=== PATIENT | female | born 1980 | race Caucasian/White ===

== ENCOUNTER 2017-05-15 10:14 | Emergency (ER) | payer SELFPAY ==
[2017-05-15] MEDS ORDERED: LACTATED RINGERS 1,000 ML IVS ONE (10:23)
--- NOTE | 2017-05-15 10:23 | ED.PDOC ---
History of Present Illness - General Chief Complaint: General Stated Complaint: nausea/vomiting /cough Time Seen by Provider: 05/15/17 10:22 Source: patient Exam Limitations: no limitations - History of Present Illness Initial Comments: Ms. Linda Weiss 36 y/o female stated that her illness started this morning when she began having intermittent dull pain on her RLQ followed by nausea vomiting feels like having bowel movement but unable to,no diarrhea,no dysuria .No dizziness Timing/Duration: 4-6 hours Severity: moderate Improving Factors: nothing Worsening Factors: eating Associated Symptoms: cough Allergies/Adverse Reactions: Allergies Hydromorphone [From Dilaudid] Allergy (Verified 11/10/14 02:07) Vomitting Home Medications: Ambulatory Orders Ondansetron [Zofran Odt] 8 mg PO Q8HRS PRN #10 tab 05/15/17 Promethazine HCl 25 mg PO Q6HR PRN #14 tab 05/15/17 Review of Systems - Review of Systems Constitutional: States: no symptoms reported EENTM: States: no symptoms reported Respiratory: States: cough - non productive Cardiology: States: no symptoms reported Gastrointestinal/Abdominal: States: see HPI Genitourinary: States: no symptoms reported Past Medical History (General) - Patient Medical History Hx Seizures: No Hx Stroke: No Hx Asthma: Yes Hx of COPD: No Hx Cardiac Disorders: No Hx Congestive Heart Failure: No Hx Pacemaker: No Hx Hypertension: No Hx Diabetes: No Hx MRSA: No Surgical History: other - hysterectomy - Vaccination History Hx Tetanus, Diphtheria Vaccination: Yes - Social History Hx Tobacco Use: Yes - 1ppd Years Tobacco Use: 20 Hx Alcohol Use: No Hx Substance Use: Yes - marijuana occasional use Hx Physical Abuse: No Hx Emotional Abuse: No - Female History Patient : No Family Medical History - Family History Mother Family History: No Known Living Status: Still Living Hx Family Hypertension: Yes - parents Physical Exam - Physical Exam General Appearance: Alert, No apparent distress Eye Exam: bilateral normal Ears, Nose, Throat: hearing grossly normal, normal ENT inspection Neck: non-tender, full range of motion, supple Respiratory: chest non-tender, lungs clear Cardiovascular/Chest: normal peripheral pulses, regular rate, rhythm, no murmur Peripheral Pulses: radial,right: 1+, radial,left: 1+ Gastrointestinal/Abdominal: normal bowel sounds, soft, no organomegaly, tenderness - RLQ no peritoneal signs Back Exam: normal inspection, no CVA tenderness Extremity: normal range of motion, non-tender, no pedal edema, no calf tenderness Neurologic: no motor/sensory deficits, alert, oriented x 3 Skin Exam: normal color, warm/dry Lymphatic: no adenopathy Progress - Progress Progress: 05/15/17 12:40 Vital Signs - 8 hr 05/15/17 05/15/17 11:50 12:15 Temperature 97.4 F L Pulse Rate [ 48 L 52 L pulse ox] Respiratory 20 16 Rate Blood Pressure 126/67 105/68 [left brachial] O2 Sat by Pulse 99 97 Oximetry Laboratory Tests 05/15/17 05/15/17 05/15/17 10:30 10:30 10:30 WBC 8.9 RBC 4.98 Hgb 15.1 Hct 45.8 MCV 92.0 MCH 30.3 MCHC 33.0 RDW 13.6 Plt Count 238 MPV 8.8 Absolute Neuts (auto) 7.20 H Absolute Lymphs (auto) 1.10 Absolute Monos (auto) 0.40 Absolute Eos (auto) 0.00 Absolute Basos (auto) 0.20 H Neutrophils % 81.1 H Lymphocytes % 11.9 L Monocytes % 4.9 Eosinophils % 0.4 L Basophils % 1.7 Sodium 140 Potassium 3.6 Chloride 107 Carbon Dioxide 25 Anion Gap 11.6 L BUN 8 Creatinine 0.82 BUN/Creatinine Ratio 9.8 L Random Glucose 138 H Serum Osmolality 279.9 Calcium 9.0 Total Bilirubin 0.6 AST 18 ALT 14 Alkaline Phosphatase 50 Serum Total Protein 7.7 Albumin 4.5 Globulin 3.2 Albumin/Globulin Ratio 1.4 Lipase 24 Serum HCG, Qual Negative Urine Color Urine Appearance Urine pH Ur Specific [place] Urine Protein Urine Glucose (UA) Urine Ketones Urine Blood Urine Nitrite Urine Bilirubin Urine Urobilinogen Ur Leukocyte Esterase Urine RBC Urine WBC Ur Epithelial Cells Urine Bacteria Urine Opiates Screen Urine Barbiturates Ur Phencyclidine Scrn U Amphetamin/Meth Scrn U Benzodiazepines Scrn U Cocaine Metab Screen U Cannabinoids Screen 05/15/17 05/15/17 11:41 12:10 WBC RBC Hgb Hct MCV MCH MCHC RDW Plt Count MPV Absolute Neuts (auto) Absolute Lymphs (auto) Absolute Monos (auto) Absolute Eos (auto) Absolute Basos (auto) Neutrophils % Lymphocytes % Monocytes % Eosinophils % Basophils % Sodium Potassium Chloride Carbon Dioxide Anion Gap BUN Creatinine BUN/Creatinine Ratio Random Glucose Serum Osmolality Calcium Total Bilirubin AST ALT Alkaline Phosphatase Serum Total Protein Albumin Globulin Albumin/Globulin Ratio Lipase Serum HCG, Qual Urine Color Yellow Urine Appearance Clear Urine pH 7.0 Ur Specific [place] 1.025 Urine Protein Trace Urine Glucose (UA) Negative Urine Ketones Negative Urine Blood Negative Urine Nitrite Negative Urine Bilirubin Negative Urine Urobilinogen 0.2 Ur Leukocyte Esterase Negative Urine RBC 0 Urine WBC 0 Ur Epithelial Cells 10-20 Urine Bacteria Rare Urine Opiates Screen Negative Urine Barbiturates Negative Ur Phencyclidine Scrn Negative U Amphetamin/Meth Scrn Negative U Benzodiazepines Scrn Positive H U Cocaine Metab Screen Negative U Cannabinoids Screen Positive H - Results/Orders Results/Orders: Laboratory Tests 05/15/17 05/15/17 05/15/17 10:30 10:30 10:30 WBC 8.9 RBC 4.98 Hgb 15.1 Hct 45.8 MCV 92.0 MCH 30.3 MCHC 33.0 RDW 13.6 Plt Count 238 MPV 8.8 Absolute Neuts (auto) 7.20 H Absolute Lymphs (auto) 1.10 Absolute Monos (auto) 0.40 Absolute Eos (auto) 0.00 Absolute Basos (auto) 0.20 H Neutrophils % 81.1 H Lymphocytes % 11.9 L Monocytes % 4.9 Eosinophils % 0.4 L Basophils % 1.7 Sodium 140 Potassium 3.6 Chloride 107 Carbon Dioxide 25 Anion Gap 11.6 L BUN 8 Creatinine 0.82 BUN/Creatinine Ratio 9.8 L Random Glucose 138 H Serum Osmolality 279.9 Calcium 9.0 Total Bilirubin 0.6 AST 18 ALT 14 Alkaline Phosphatase 50 Serum Total Protein 7.7 Albumin 4.5 Globulin 3.2 Albumin/Globulin Ratio 1.4 Lipase 24 Serum HCG, Qual Negative Urine Color Urine Appearance Urine pH Ur Specific [place] Urine Protein Urine Glucose (UA) Urine Ketones Urine Blood Urine Nitrite Urine Bilirubin Urine Urobilinogen Ur Leukocyte Esterase Urine RBC Urine WBC Ur Epithelial Cells Urine Bacteria Urine Opiates Screen Urine Barbiturates Ur Phencyclidine Scrn U Amphetamin/Meth Scrn U Benzodiazepines Scrn U Cocaine Metab Screen U Cannabinoids Screen 05/15/17 05/15/17 11:41 12:10 WBC RBC Hgb Hct MCV MCH MCHC RDW Plt Count MPV Absolute Neuts (auto) Absolute Lymphs (auto) Absolute Monos (auto) Absolute Eos (auto) Absolute Basos (auto) Neutrophils % Lymphocytes % Monocytes % Eosinophils % Basophils % Sodium Potassium Chloride Carbon Dioxide Anion Gap BUN Creatinine BUN/Creatinine Ratio Random Glucose Serum Osmolality Calcium Total Bilirubin AST ALT Alkaline Phosphatase Serum Total Protein Albumin Globulin Albumin/Globulin Ratio Lipase Serum HCG, Qual Urine Color Yellow Urine Appearance Clear Urine pH 7.0 Ur Specific [place] 1.025 Urine Protein Trace Urine Glucose (UA) Negative Urine Ketones Negative Urine Blood Negative Urine Nitrite Negative Urine Bilirubin Negative Urine Urobilinogen 0.2 Ur Leukocyte Esterase Negative Urine RBC 0 Urine WBC 0 Ur Epithelial Cells 10-20 Urine Bacteria Rare Urine Opiates Screen Negative Urine Barbiturates Negative Ur Phencyclidine Scrn Negative U Amphetamin/Meth Scrn Negative U Benzodiazepines Scrn Positive H U Cocaine Metab Screen Negative U Cannabinoids Screen Positive H - EKG/XRAY/CT XRAY: chest - no acute abnormality CT Ordered: Yes - no acute abnormality Departure - Departure Clinical Impression: Nausea and vomiting in adult Time of Disposition: 13:27 Disposition: Discharge to Home or Self Care Condition: Fair Instructions: DI for Vomiting -- Adult Referrals: Ronak Li MD [Primary Care Provider] - 1-2 Weeks Prescriptions: Promethazine HCl 25 mg PO Q6HR PRN #14 tab PRN Reason: Nausea Ondansetron [Zofran Odt] 8 mg PO Q8HRS PRN #10 tab PRN Reason: Nausea/Vomiting Home Medications: Ambulatory Orders Ondansetron [Zofran Odt] 8 mg PO Q8HRS PRN #10 tab 05/15/17 Promethazine HCl 25 mg PO Q6HR PRN #14 tab 05/15/17 Additional Instructions: Return to emergency room as needed
[2017-05-15] MEDS ORDERED: ONDANSETRON INJ 4 MG/2 ML VIAL IV ONE (10:24)
--- NOTE | 2017-05-15 10:48 | RAD ---
Study: Single Frontal View of the Chest. Indication:cough Comparison: None. IMPRESSION: Heart size normal. Lungs clear. No acute osseous abnormality. Electronically signed by: Stephon Castillo MD 05/15/2017 10:47 AM CDT
[2017-05-15] MEDS ORDERED: PROMETHAZINE HCL INJ 25 MG/ML VIAL IM ONE (11:00)
[2017-05-15 12:22] VITALS: TEMP 97.4
--- NOTE | 2017-05-15 12:27 | CT ---
EXAM DESCRIPTION: Abdomen/Pelvis w/Contrast CLINICAL HISTORY: RLQ COMPARISON: November 09, 2014 TECHNIQUE: Postcontrast CT images of the abdomen and pelvis are obtained. This exam was performed according to our departmental dose-optimization program, which includes automated exposure control, adjustment of the mA and/or kV according to patient size and/or use of iterative reconstruction technique . FINDINGS: Lung bases are unremarkable. The liver, spleen, pancreas, adrenal glands, gallbladder, and abdominal vasculature are unremarkable. Kidneys show normal cortical enhancement. No significant nephrolithiasis. No obvious ureteral obstruction. Urinary bladder is contracted and not well visualized. There is presumed surgical absence of uterus. Small amount of probably physiologic free fluid in the pelvic cul-de-sac is seen. There is a low attenuation lesion in the right mid to upper pelvis measuring 4.5 x 2.7 cm corresponding to the location of the ovary seen on previous exam. Hounsfield units measure 55. Left ovary is unremarkable. The appendix is not well identified. Portion of the appendix appears air-filled and extends towards the right pelvic sidewall. No small bowel obstruction is seen. The colon is relatively decompressed. No significant surrounding inflammatory changes are seen. No significant diverticular disease. No pathologic lymphadenopathy is identified. Degenerative changes of the sacroiliac joints are seen. Osseous structures show no aggressive bony lesions. Moderate to severe disc degenerative changes at L5-S1 are seen with broad-based disc bulge at L4-5 noted. IMPRESSION: The appendix is incompletely visualized because of surrounding loops of small bowel and the right ovary. Visualized portion of the appendix shows no convincing evidence of acute appendicitis. Correlate with clinical exam findings. Right ovary is slightly larger than left similar to previous exam. Colon is mostly decompressed and otherwise unremarkable. Small amount of probably physiologic free fluid in the pelvic cul-de-sac. Electronically signed by: Joss Hernández MD 05/15/2017 12:25 PM CDT
[2017-05-15] MEDS ORDERED: SODIUM CHLORIDE 0.9% 500ML 500 ML IVS PRN (13:06)
[2017-05-15] MEDS ORDERED: SODIUM CHLORIDE 0.9% 500ML 500 ML IVS ONE (13:06)
[2017-05-15 13:17] VITALS: O2SAT 98
[2017-05-15 14:22] VITALS: BP 98/59
== END 2017-05-15 14:15 | disposition home or self-care (01) ==
LOC: ER 10:14
DX: R11.2 Nausea with vomiting, unspecified (principal); J45.909 Unspecified asthma, uncomplicated; Z87.891 Personal history of nicotine dependence; Z88.6 Allergy status to analgesic agent
CPT/HCPCS: 36415; 71010; 74177; 80053; 80307; 81001; 83690; 84703; 85025; J2060; J2405; J2550; J7040; J7120

== ENCOUNTER 2018-04-12 14:16 | Emergency (ER) | payer SELFPAY ==
[2018-04-12 14:30] VITALS: BP 111/72; TEMP 98.1
[2018-04-12] MEDS ORDERED: predniSONE 20 MG TAB PO ONE (14:42)
[2018-04-12] MEDS ORDERED: CYCLOBENZAPRINE HCL 5 MG TAB PO ONE (14:42)
--- NOTE | 2018-04-12 15:13 | RAD ---
EXAM DESCRIPTION: Lumbar Spine 3 Views CLINICAL HISTORY: lbp c sciatica COMPARISON: None Available. TECHNIQUE: AP/lateral/coned-down lateral FINDINGS: There is anatomic alignment of the vertebral bodies of the lumbar spine. Frontal view shows intact pedicles and transverse processes. Sacrum appears intact with normal SI joints. Lateral view shows no vertebral compressions. Sclerosis is seen involving the lower half of L5 and upper S1 with marked narrowing of the disc space. Facet sclerotic changes are seen at L5-S1 as well. Normal SI joints. IMPRESSION: Advanced degenerative disc disease at L5-S1. Electronically signed by: Hector Hood MD 04/12/2018 3:11 PM CDT
--- NOTE | 2018-04-12 15:23 | ED.PDOC ---
History of Present Illness - General Chief Complaint: Back Pain or Injury Stated Complaint: BACK PAIN Time Seen by Provider: 04/12/18 14:21 Source: patient Exam Limitations: no limitations - History of Present Illness Initial Comments: the patient is a 37-year-old female presenting to emergency room secondary to low back pain for the last 11 days. 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 She is complaining of mild bilateral sciatica as well. No incontinence. No objective leg weakness. No falls. She reports that the pain started 11 days ago after lifting a case at work. She has been taking an [id number] anti-inflammatory and she did take 1 dose of a muscle relaxer. Physical exam shows no step-off or bruising. No spinous tenderness to palpation. Mild paraspinal muscle spasm adjacent to L4 -S1 bilaterally. No definite palpable muscle spasm at this time. Strength is intact. Sensation is intact. Reflexes are symmetrical 2+ bilaterally in the lower extremities. Timing/Duration: other - 11 days Severity: moderate Improving Factors: movement Worsening Factors: immobilization Associated Symptoms: denies symptoms Allergies/Adverse Reactions: Allergies Hydrocodone Allergy (Verified 04/12/18 14:26) Hydromorphone [From Dilaudid] Allergy (Verified 11/10/14 02:07) Vomitting Home Medications: Ambulatory Orders Ondansetron [Zofran Odt] 8 mg PO Q8HRS PRN #10 tab 05/15/17 Promethazine HCl 25 mg PO Q6HR PRN #14 tab 05/15/17 Cyclobenzaprine HCl [Flexeril] 5 mg PO TID PRN #30 tab 04/12/18 Gabapentin 100 mg PO Q8HR PRN #30 cap 04/12/18 predniSONE [Prednisone] 20 mg PO DAILY #7 tab 04/12/18 Review of Systems - Review of Systems Constitutional: States: no symptoms reported EENTM: States: no symptoms reported Respiratory: States: no symptoms reported Cardiology: States: no symptoms reported Gastrointestinal/Abdominal: States: no symptoms reported Genitourinary: States: no symptoms reported Musculoskeletal: States: back pain Skin: States: no symptoms reported Neurological: States: see HPI Endocrine: States: no symptoms reported All other Systems: No Change from Baseline Past Medical History (General) - Patient Medical History Hx Seizures: No Hx Stroke: No Hx Asthma: Yes Hx of COPD: Yes Hx Cardiac Disorders: No Hx Congestive Heart Failure: No Hx Pacemaker: No Hx Hypertension: No Hx Diabetes: No Hx MRSA: No Surgical History: Hysterectomy, other - Vaccination History Hx Tetanus, Diphtheria Vaccination: Yes - Social History Hx Tobacco Use: Yes - 1ppd Hx Alcohol Use: No Hx Substance Use: Yes - marijuana occasional use Hx Physical Abuse: No Hx Emotional Abuse: No - Female History Patient : No Family Medical History - Family History Mother Family History: No Known Living Status: Still Living Hx Family Hypertension: Yes - parents Physical Exam - Physical Exam General Appearance: Alert, Comfortable, No apparent distress Eye Exam: bilateral normal Ears, Nose, Throat: hearing grossly normal, normal ENT inspection, normal pharynx Neck: full range of motion, supple Respiratory: no respiratory distress, no accessory muscle use Cardiovascular/Chest: normal peripheral pulses, no edema, other - regular rate Peripheral Pulses: dorsalis pedis,right: 2+, dorsalis pedis,left: 2+ Rectal Exam: deferred Back Exam: no vertebral tenderness Extremity: other - see history of present illness Neurologic: hypo dipper II-XII nml as tested, alert, normal mood/affect, oriented x 3 DTR: 2+: Achilles, left, Achilles, right, Patellar, left, Patellar, right Skin Exam: normal color Comments: Vital Signs - 24 hr 04/12/18 14:26 Temperature 98.1 F Pulse Rate [ 79 left brachial] Respiratory 20 Rate Blood Pressure 111/72 [left brachial] O2 Sat by Pulse 99 Oximetry Progress - Progress Progress: 04/12/18 15:24 the patient is a 37-year-old female presenting with a recurrence of her chronic low back pain with some bilateral sciatica. X-ray of the lumbar spine shows no acute changes but does confirm significant DJD of the lumbar spine in the L4-S1 area consistent with her symptoms. the patient is going be placed on oral prednisone for the next week and she will also be written for Neurontin and Flexeril for as needed use for symptom control. She can continue [id number] ibuprofen or Aleve as needed. She does need to take this with food to prevent stomach upset. Topical heat in the form of a heat pad or icy hot or Biofreeze may also help. She does also need to do stretching exercises to help reduce muscle spasm. In the longer term she does need to do exercises such as rowing or swimming or bicycling to improve mobility of her lumbar spine and reduce future chronic pain. She can keep follow-up with her primary care doctor next week for reevaluation. I do believe that she is stable enough for a chiropractor visit, as this may provide some significant relief in a more rapid fashion. ER warnings were given. - EKG/XRAY/CT CT Ordered: No CT Interpretation Call Back: No Departure - Departure Clinical Impression: Degeneration of lumbar intervertebral disc Sciatica Qualifiers: Laterality: bilateral Qualified Code(s): M54.31 - Sciatica, right side; M54.32 - Sciatica, left side; M54.32 - Sciatica, left side Disposition: Discharge to Home or Self Care Condition: Fair Departure Forms: ED Discharge - Pt. Copy, Patient Portal Self Enrollment Instructions: DI for Back Pain With Sciatica Diet: regular diet Activity: increase activity as tolerated Referrals: Ronak Li MD [Primary Care Provider] - 1-5 Days Prescriptions: Gabapentin 100 mg PO Q8HR PRN #30 cap PRN Reason: Severe Pain Cyclobenzaprine HCl [Flexeril] 5 mg PO TID PRN #30 tab PRN Reason: Muscle Spasms predniSONE [Prednisone] 20 mg PO DAILY #7 tab Home Medications: Ambulatory Orders Ondansetron [Zofran Odt] 8 mg PO Q8HRS PRN #10 tab 05/15/17 Promethazine HCl 25 mg PO Q6HR PRN #14 tab 05/15/17 Cyclobenzaprine HCl [Flexeril] 5 mg PO TID PRN #30 tab 04/12/18 Gabapentin 100 mg PO Q8HR PRN #30 cap 04/12/18 predniSONE [Prednisone] 20 mg PO DAILY #7 tab 04/12/18 Additional Instructions: the patient is a 37-year-old female presenting with a recurrence of her chronic low back pain with some bilateral sciatica. X-ray of the lumbar spine shows no acute changes but does confirm significant DJD of the lumbar spine in the L4-S1 area consistent with her symptoms. the patient is going be placed on oral prednisone for the next week and she will also be written for Neurontin and Flexeril for as needed use for symptom control. She can continue [id number] ibuprofen or Aleve as needed. She does need to take this with food to prevent stomach upset. Topical heat in the form of a heat pad or icy hot or Biofreeze may also help. She does also need to do stretching exercises to help reduce muscle spasm. In the longer term she does need to do exercises such as rowing or swimming or bicycling to improve mobility of her lumbar spine and reduce future chronic pain. She can keep follow-up with her primary care doctor next week for reevaluation. I do believe that she is stable enough for a chiropractor visit, as this may provide some significant relief in a more rapid fashion. ER warnings were given.
[2018-04-12 15:52] VITALS: O2SAT 98
== END 2018-04-12 16:03 | disposition home or self-care (01) ==
LOC: ER 14:16
DX: M51.16 Intervertebral disc disorders with radiculopathy, lumbar region (principal); J44.9 Chronic obstructive pulmonary disease, unspecified; J45.909 Unspecified asthma, uncomplicated; Z79.899 Other long term (current) drug therapy; F17.200 Nicotine dependence, unspecified, uncomplicated
CPT/HCPCS: 72100; J7512

== ENCOUNTER 2018-06-23 18:21 | Observation (INO) | payer SELFPAY ==
[2018-06-23] MEDS ORDERED: ONDANSETRON INJ 4 MG/2 ML VIAL ONE (18:41)
[2018-06-23] MEDS ORDERED: ONDANSETRON INJ 4 MG/2 ML VIAL IV ONE (18:41)
[2018-06-23] MEDS ORDERED: PROMETHAZINE HCL INJ 25 MG/ML VIAL ONE ×2 (19:01→19:02)
[2018-06-23] MEDS ORDERED: SODIUM CHLORIDE 0.9% 100ML 100 ML IVPB ONE (19:02)
[2018-06-23] MEDS ORDERED: PROMETHAZINE HCL INJ 50 MG in SODIUM CHLORIDE 0.9% 50ML 50 ML IVPB ONE (19:02)
[2018-06-23] MEDS ORDERED: MORPHINE SULFATE INJ 10 MG/ML VIAL IV ONE (19:10)
[2018-06-23] MEDS ORDERED: LACTATED RINGERS 1,000 ML IVS ONE (20:50)
--- NOTE | 2018-06-23 21:00 | ED.PDOC ---
History of Present Illness - General Chief Complaint: Abdominal Pain Stated Complaint: nausea/vomiting Time Seen by Provider: 06/23/18 20:15 Source: patient Exam Limitations: no limitations - History of Present Illness Initial Comments: Linda Weiss 37 y/o female stated that she had nausea/vomiting multiple times at noon today and 2 episodes of watery diarrhea unable to take anything down then followed by dull right lower quadrant pain which persisted at time of ER visit.Ate chicken wings today. Timing/Duration: other - 8-10 hours Severity: moderate Improving Factors: nothing Worsening Factors: eating Associated Symptoms: nausea/vomiting Allergies/Adverse Reactions: Allergies Hydrocodone Allergy (Verified 04/12/18 14:26) Hydromorphone [From Dilaudid] Allergy (Verified 11/10/14 02:07) Vomitting Home Medications: Ambulatory Orders Ondansetron [Zofran Odt] 8 mg PO Q8HRS PRN #10 tab 05/15/17 Promethazine HCl 25 mg PO Q6HR PRN #14 tab 05/15/17 Cyclobenzaprine HCl [Flexeril] 5 mg PO TID PRN #30 tab 04/12/18 Gabapentin 100 mg PO Q8HR PRN #30 cap 04/12/18 predniSONE [Prednisone] 20 mg PO DAILY #7 tab 04/12/18 Review of Systems - Review of Systems Constitutional: States: no symptoms reported EENTM: States: no symptoms reported Respiratory: States: no symptoms reported Cardiology: States: no symptoms reported Gastrointestinal/Abdominal: States: see HPI, diarrhea, vomiting Musculoskeletal: States: no symptoms reported Skin: States: no symptoms reported Neurological: States: no symptoms reported Endocrine: States: no symptoms reported Hematologic/Lymphatic: States: no symptoms reported Past Medical History (General) - Patient Medical History Hx Seizures: No Hx Stroke: No Hx Asthma: Yes Hx of COPD: Yes Hx Cardiac Disorders: No Hx Congestive Heart Failure: No Hx Pacemaker: No Hx Hypertension: No Hx Diabetes: No Hx Cancer: No Hx Hepatitis C: No Hx MRSA: No - Vaccination History Hx Tetanus, Diphtheria Vaccination: No Hx Influenza Vaccination: No Hx Pneumococcal Vaccination: No Immunizations Up to Date: No - Social History Hx Tobacco Use: Yes Hx Chewing Tobacco Use: No Hx Alcohol Use: No Hx Substance Use: No Hx Substance Use Treatment: No Hx Depression: No Feels Threatened In Home Enviroment: No Feels Threatened In a Relationship: No Hx Physical Abuse: No Hx Emotional Abuse: No Hx Suspected Abuse: No - Female History Patient is a Female of Child Bearing Age (10 -59 yrs old): No Patient : No Family Medical History - Family History Mother Family History: No Known Living Status: Still Living Hx Family Hypertension: Yes - parents Physical Exam - Physical Exam General Appearance: Alert, Anxious, No apparent distress Eye Exam: bilateral normal Ears, Nose, Throat: hearing grossly normal, normal ENT inspection, normal pharynx Neck: non-tender, full range of motion, supple Respiratory: lungs clear, normal breath sounds Cardiovascular/Chest: normal peripheral pulses, regular rate, rhythm, no murmur Peripheral Pulses: radial,right: 2+, radial,left: 2+ Gastrointestinal/Abdominal: normal bowel sounds, soft, no organomegaly, tenderness - RLQ,no peritoneal signs Back Exam: normal inspection, no CVA tenderness, no vertebral tenderness Extremity: non-tender, no pedal edema Neurologic: alert, oriented x 3 Skin Exam: normal color, warm/dry Lymphatic: no adenopathy Progress - Progress Progress: 06/23/18 22:11 06/23/18 20:49 Hold Metformin x 48Hrs [id number] 06/23/18 21:02 URINE DRUG SCREEN, 7 ASSAY Stat URINALYSIS Stat 06/23/18 21:34 Sodium Chloride 0.9% 1000ML [Ns 1000 ml] 1,000 ml IVS ONCE Laboratory Results - last 24 hr 06/23/18 06/23/18 06/23/18 18:40 18:40 Unknown WBC 10.6 RBC 4.83 Hgb 15.3 Hct 46.3 MCV 95.9 MCH 31.6 H MCHC 33.0 RDW 14.7 H Plt Count 309 MPV 8.2 Absolute Neuts (auto) 8.00 H Absolute Lymphs (auto) 1.70 Absolute Monos (auto) 0.70 Absolute Eos (auto) 0.10 Absolute Basos (auto) 0.10 Neutrophils % 75.4 Lymphocytes % 15.7 L Monocytes % 6.8 Eosinophils % 1.2 Basophils % 0.9 Sodium 137 Potassium 3.4 L Chloride 103 Carbon Dioxide 24 Anion Gap 13.4 BUN 12 Creatinine 0.71 BUN/Creatinine Ratio 16.9 Random Glucose 121 H Serum Osmolality 274.8 L Calcium 9.2 Total Bilirubin 0.6 AST 19 ALT 15 Alkaline Phosphatase 61 Serum Total Protein 7.8 Albumin 4.1 Globulin 3.7 H Albumin/Globulin Ratio 1.1 Lipase 22 Serum HCG, Qual 06/23/18 Unknown WBC RBC Hgb Hct MCV MCH MCHC RDW Plt Count MPV Absolute Neuts (auto) Absolute Lymphs (auto) Absolute Monos (auto) Absolute Eos (auto) Absolute Basos (auto) Neutrophils % Lymphocytes % Monocytes % Eosinophils % Basophils % Sodium Potassium Chloride Carbon Dioxide Anion Gap BUN Creatinine BUN/Creatinine Ratio Random Glucose Serum Osmolality Calcium Total Bilirubin AST ALT Alkaline Phosphatase Serum Total Protein Albumin Globulin Albumin/Globulin Ratio Lipase Serum HCG, Qual Negative - Results/Orders Results/Orders: 06/23/18 20:49 Hold Metformin x 48Hrs [id number] 06/23/18 21:02 URINE DRUG SCREEN, 7 ASSAY Stat Laboratory Results WBC 10.6 K/mm3 (4.8-10.8) 06/23/18 18:40 RBC 4.83 M/mm3 (4.20-5.40) 06/23/18 18:40 Hgb 15.3 gm/dL (12.0-16.0) 06/23/18 18:40 Hct 46.3 % (36.0-47.0) 06/23/18 18:40 MCV 95.9 fl (81.0-99.0) 06/23/18 18:40 MCH 31.6 pg (27.0-31.0) H 06/23/18 18:40 MCHC 33.0 g/dL (33.0-37.0) 06/23/18 18:40 RDW 14.7 % (11.5-14.5) H 06/23/18 18:40 Plt Count 309 K/mm3 (130-400) 06/23/18 18:40 MPV 8.2 fl (7.40-10.4) 06/23/18 18:40 Absolute Neuts (auto) 8.00 K/uL (1.8-6.8) H 06/23/18 18:40 Absolute Lymphs (auto) 1.70 K/uL (1.0-3.4) 06/23/18 18:40 Absolute Monos (auto) 0.70 K/uL (0.2-0.8) 06/23/18 18:40 Absolute Eos (auto) 0.10 K/uL (0.0-0.4) 06/23/18 18:40 Absolute Basos (auto) 0.10 K/uL (0.0-0.1) 06/23/18 18:40 Neutrophils % 75.4 % (42.0-78.0) 06/23/18 18:40 Lymphocytes % 15.7 % (20.0-50.0) L 06/23/18 18:40 Monocytes % 6.8 % (2.0-9.0) 06/23/18 18:40 Eosinophils % 1.2 % (1.0-5.0) 06/23/18 18:40 Basophils % 0.9 % (0.0-2.0) 06/23/18 18:40 Sodium 137 mmol/L (135-145) 06/23/18 18:40 Potassium 3.4 mmol/L (3.6-5.0) L 06/23/18 18:40 Chloride 103 mmol/L (101-111) 06/23/18 18:40 Carbon Dioxide 24 mmol/L (21-31) 06/23/18 18:40 Anion Gap 13.4 (12-18) 06/23/18 18:40 BUN 12 mg/dL (7-18) 06/23/18 18:40 Creatinine 0.71 mg/dL (0.6-1.3) 06/23/18 18:40 BUN/Creatinine Ratio 16.9 (10-20) 06/23/18 18:40 Random Glucose 121 mg/dL (70-105) H 06/23/18 18:40 Serum Osmolality 274.8 mOsm/L (275-295) L 06/23/18 18:40 Calcium 9.2 mg/dL (8.4-10.2) 06/23/18 18:40 Total Bilirubin 0.6 mg/dL (0.2-1.0) 06/23/18 18:40 AST 19 IU/L (10-42) 06/23/18 18:40 ALT 15 IU/L (10-60) 06/23/18 18:40 Alkaline Phosphatase 61 IU/L (42-121) 06/23/18 18:40 Serum Total Protein 7.8 gm/dL (6.4-8.2) 06/23/18 18:40 Albumin 4.1 g/dl (3.2-5.5) 06/23/18 18:40 Globulin 3.7 gm/dL (2.3-3.5) H 06/23/18 18:40 Albumin/Globulin Ratio 1.1 (1.1-1.9) 06/23/18 18:40 Lipase 22 U/L (22-51) 06/23/18 Unknown Serum HCG, Qual Negative 06/23/18 Unknown - EKG/XRAY/CT CT Ordered: Yes - no acute abnormalities noted CT Interpretation Call Back: Yes - head-no acute abnormalities Departure - Departure Clinical Impression: Diarrhea Qualifiers: Diarrhea type: unspecified type Qualified Code(s): R19.7 - Diarrhea, unspecified Intractable vomiting with nausea Qualifiers: Vomiting type: unspecified Qualified Code(s): R11.2 - Nausea with vomiting, unspecified Abdominal pain Qualifiers: Abdominal location: right lower quadrant Qualified Code(s): R10.31 - Right lower quadrant pain Time of Disposition: 01:43 Disposition: Admit Patient Condition: Good Departure Forms: Patient Portal Self Enrollment Diet: other Referrals: Ronak Li MD [Primary Care Provider] - 1-2 Weeks Home Medications: Ambulatory Orders Ondansetron [Zofran Odt] 8 mg PO Q8HRS PRN #10 tab 05/15/17 Promethazine HCl 25 mg PO Q6HR PRN #14 tab 05/15/17 Cyclobenzaprine HCl [Flexeril] 5 mg PO TID PRN #30 tab 04/12/18 Gabapentin 100 mg PO Q8HR PRN #30 cap 04/12/18 predniSONE [Prednisone] 20 mg PO DAILY #7 tab 04/12/18 Decision To Admit - Decistion To Admit Decision to Admit Reason: Admit from ER Decision to Admit Date: 06/24/18 - D/W Alvarado Treviño-ANP/Hospitalist Decision to Admit Time: 01:39
--- NOTE | 2018-06-23 21:21 | CT ---
EXAM DESCRIPTION: Abdomen/Pelvis w/Contrast CLINICAL HISTORY:37 years Female, pain Comparison: None TECHNIQUE: Contiguous axial images of the abdomen and pelvis were obtained followed by reconstruction images. This exam was performed according to our departmental dose-optimization program, which includes automated exposure control, adjustment of the mA and/or kV according to patient size and/or use of iterative reconstruction technique. FINDINGS: Lung bases: Lung bases are clear. Heart: Visualized heart is within normal limits in size. Liver:Unremarkable. No focal liver lesion. Gallbladder:Unremarkable. No gallstones. No gallbladder wall thickening or pericholecystic fluid. Spleen:Unremarkable Pancreas: Pancreas is unremarkable. Adrenal glands:Within normal limits. Kidneys/ureters:Within normal limits Bladder:Unremarkable. Pelvic organs: No acute abnormality Vascular structures: within normal limits Peritoneum: Trace free fluid in the lower pelvis. Lymph nodes: No abnormal lymph nodes. Stomach/small bowel/colon: Stomach is unremarkable. Small bowel is unremarkable. Colon is unremarkable. Appendix: No evidence of appendicitis. Bones: No acute osseous abnormality. Soft tissues: Unremarkable.. IMPRESSION: No acute intra-abdominal abnormality. Electronically signed by: Ronak Juarez DO 06/23/2018 9:20 PM CDT
[2018-06-23] MEDS ORDERED: SODIUM CHLORIDE 0.9% 1000ML 1,000 ML IVS ONE (21:34)
[2018-06-23] MEDS ORDERED: ONDANSETRON ODT (ER DISP) 8 MG TAB PO ONE (22:42)
[2018-06-23] MEDS: PROMETHAZINE HCL INJ 25 MG/ML VIAL IM PRN (23:45)
--- NOTE | 2018-06-24 00:55 | CT ---
EXAM: CT head without contrast. INDICATION: Vomiting. TECHNIQUE: Contiguous axial CT images of the brain. Intravenous contrast: Absent. DLP 752 mGy-cm. This exam was performed according to our departmental dose-optimization program, which includes automated exposure control, adjustment of the mA and/or kV according to patient size and/or use of iterative reconstruction technique. COMPARISON: None. FINDINGS: Subcutaneous: Unremarkable. No acute intracranial hemorrhage. No midline shift. No mass effect. Ventricles: No hydrocephalus. Villela-white differentiation preserved. Paranasal sinuses/mastoid air cells: Visualized portions are aerated. Bones/orbits: Visualized portions are unremarkable. IMPRESSION: 1. No CT evidence of acute intracranial hemorrhage. Electronically signed by: Ky Ball MD 06/24/2018 12:54 AM CDT Workstation: [id number]
--- NOTE | 2018-06-24 01:56 | HP ---
SUPERVISING PHYSICIAN: Aaliyah Ernandez MD CHIEF COMPLAINT: Intractable vomiting. HISTORY OF PRESENT ILLNESS: This is a 37-year-old female patient who started with nausea and vomiting that began at noon on the day prior to admission. She had intractable vomiting 3 or 4 times in a row and 2 episodes of watery diarrhea. She has no longer had diarrhea since that time, but it was persistent with dull right lower quadrant pain. Her father ate the same thing she did and was somewhat nauseated, but not to the extent she was. In the Emergency Room, her vital signs showed a temperature of 97.4, heart rate 67, blood pressure 118/70, respiratory rate 18, O2 saturation 100% on room air. Laboratory showed WBC 10.6, hemoglobin 15.3, hematocrit 46.3. Chemistries were basically within normal limits with the exception of her potassium slightly low at 3.4. Her random glucose was 121. Serum osmolality 274.8, globulin high at 3.7. CT of the head was done showing no CT evidence of acute intracranial hemorrhage. CT of the abdomen and pelvis showed no acute intraabdominal abnormality. The patient was placed in observation in the hospital for intractable nausea and vomiting. PAST MEDICAL HISTORY: 1. Scoliosis. PAST SURGICAL HISTORY: 1. Right breast lumpectomy. 2. Hysterectomy. OUTPATIENT MEDICATIONS: None. ALLERGIES: NO KNOWN DRUG ALLERGIES. SOCIAL HISTORY: She lives in [place]. She smokes 1-1/2 packs of cigarettes per day. She drinks alcohol socially on the weekends and she usually drinks beer. She has smoked pot in the past, but has not recently. REVIEW OF SYSTEMS: GENERAL: Positive for fatigue. Negative for fever, although she admits to having night sweats the two previous nights without mention of temperature. Negative for weight changes. HEENT: Negative for sinus symptoms, ear pain, vision changes or sore throat. RESPIRATORY: Negative for coughing, wheezing or shortness of breath. CARDIAC: Negative for chest pain, palpitations or tachycardia. GASTROINTESTINAL: Positive for nausea, vomiting, diarrhea, but has not had any diarrhea since yesterday at noon. MUSCULOSKELETAL: Negative for back pain, arthralgias, myalgias. SKIN: Negative for lesions or rashes. NEUROLOGIC: Negative for headache, dizziness or seizures. PHYSICAL EXAMINATION: VITAL SIGNS: Temperature 99.8. Heart rate 58. Blood pressure 101/62. Respiratory rate 18. O2 saturation 99% on room air. GENERAL: This is a 37-year-old female patient lying in her hospital bed. She is in no acute distress. HEENT: Normocephalic, atraumatic. Pupils are equal and reactive. Oropharynx is clear. Oral mucous membranes are slightly dry. NECK: Supple without mass. RESPIRATORY: Essentially clear to auscultation bilaterally. CARDIOVASCULAR: Regular rate and rhythm. At times, she is slightly bradycardic. GASTROINTESTINAL: Abdomen is soft, nondistended. It is diffusely tender, but very mildly tender. Bowel sounds are positive. EXTREMITIES: No cyanosis, clubbing or edema. NEUROLOGIC: She is awake. She lethargic and sleepy, mostly due to her antiemetics, but she answers questions appropriately and she is oriented times 3. LABORATORY: Labs and films are as per history of present illness. IMPRESSION: 1. Gastroenteritis. 2. Intractable nausea and vomiting secondary to #1. 3. Mild hypokalemia. 4. Tobacco abuse. PLAN: We will place the patient in observation. We will try to get her vomiting under control with multiple antiemetics. I will put her on a electronic device monitor to monitor her EKG as well as closely watch her QT interval due to the multiple antiemetics she is receiving. I will also start her on Flagyl as well as proton pump inhibitor for ulcer prophylaxis. I have also started Lovenox for DVT prophylaxis. She is on generous fluids for fluid replacement until she can tolerate a diet. We will continue to monitor the patient closely and follow as needed. Dr. Ernandez is the collaborating physician and available for consultation. #[id number] [facility]
[2018-06-24] MEDS ORDERED: IV SET AND CAP CHANGE INJ INJ SCH (04:30)
[2018-06-24] MEDS ORDERED: SODIUM CHLORIDE 0.9% (FLUSH) 10 ML SYG IV PRN (04:30)
[2018-06-24] MEDS ORDERED: KCL 40MEQ/NS 1,000 ML IVS PRN (04:35)
[2018-06-24] MEDS: ONDANSETRON INJ 4 MG/2 ML VIAL IV PRN ×3 (05:39→21:20)
[2018-06-24] MEDS: PROMETHAZINE HCL INJ 25 MG/ML VIAL IM PRN (08:09)
[2018-06-24] MEDS: PANTOPRAZOLE SODIUM IV 40 MG VIAL IV SCH (10:22)
[2018-06-24] MEDS: PROCHLORPERAZINE INJ 10 MG/2 ML VIAL IV PRN ×2 (10:29→17:59)
[2018-06-24] MEDS: KCL 40 MEQ/D5 1/2NS 1,000 ML IVS PRN ×2 (10:57→18:04)
[2018-06-24] MEDS ORDERED: metroNIDAZOLE IV PREMIX 500MG 100 ML IVPB ONE ×2 (13:21→19:59)
[2018-06-24] MEDS: metroNIDAZOLE IV PREMIX 500MG 500 MG in PREMIX BAG 1 BAG IVPB SCH ×2 (13:25→21:44)
[2018-06-25] MEDS: KCL 40 MEQ/D5 1/2NS 1,000 ML IVS PRN (03:38)
[2018-06-25] MEDS ORDERED: metroNIDAZOLE IV PREMIX 500MG 100 ML IVPB ONE (03:56)
[2018-06-25] MEDS: metroNIDAZOLE IV PREMIX 500MG 500 MG in PREMIX BAG 1 BAG IVPB SCH (05:32)
[2018-06-25] MEDS: PANTOPRAZOLE SODIUM IV 40 MG VIAL IV SCH (06:01)
[2018-06-25 06:21] VITALS: TEMP 97.8
[2018-06-25 08:52] VITALS: O2SAT 97
[2018-06-25 11:31] VITALS: BP 90/58
--- NOTE | 2018-06-25 13:20 | DS ---
SUPERVISING PHYSICIAN: Aaliyah Ernandez MD DISCHARGE DIAGNOSIS: 1. Gastroenteritis. 2. Intractable nausea and vomiting secondary to #1. 3. Mild hypokalemia. 4. Tobacco abuse. HISTORY OF PRESENT ILLNESS: This is a 37-year-old female patient who had some nausea and vomiting at home that began at noon on the day prior to admission. She had intractable vomiting 3 or 4 times in a row and 2 episodes of watery diarrhea at that time. Later than evening, she presented to the Emergency Room , she no longer had any episodes of diarrhea, but she had persistent vomiting and dull pain in her right lower quadrant. Her father ate the same thing she did at noon that day and was somewhat nauseated, but not to the extent she was. In the Emergency Room, her vital signs showed a temperature of 97.4, heart rate 67, blood pressure 118/70, respiratory rate 18, O2 saturation 100% on room air. Laboratory showed WBC 10.6, hemoglobin 15.3, hematocrit 46.3. Chemistries were basically within normal limits with the exception of her potassium slightly low at 3.4. Her random glucose was 121. Serum osmolality 274.8, globulin high at 3.7. CT of the head was done showing no CT evidence of acute intracranial hemorrhage. CT of the abdomen and pelvis showed no acute intraabdominal abnormality. The patient was placed in the hospital in observation for intractable nausea and vomiting. HOSPITAL COURSE: During her hospital course, her vital signs remained stable. Her lab was also stable except her WBCs did go up to 11,000. Potassium improved after supplementation to 4. Lipase 22. She received antiemetics of Zofran, Phenergan and Compazine as well as replacement IV fluids. She was also placed on Flagyl IV piggyback. She had one episode of slightly loose stool and stool culture was ordered on that. Those results are pending, but she had not had any nausea or vomiting since last night. Her vital signs are stable. Her laboratory values are stable. At this point, she is to be discharged home. DISCHARGE PLAN: The patient will be discharged home in stable condition. I have given her 7 days of Flagyl. She is also to resume her previous activity and advance her diet as tolerated. She is to followup with her primary care physician, Dr. Li, in the next one to two weeks. It may be beneficial to check her stool culture at that time. She is to call Dr. Li's office or return to the hospital for any problems or complications. DISCHARGE MEDICATIONS: 1. Flagyl. #[id number] [facility]
== END 2018-06-25 13:10 | disposition home or self-care (01) ==
LOC: ER 18:21 → MS 06-24 01:55
PROVIDERS: ADMIT Nurse Practitioner Acute Care; ATTEND Nurse Practitioner Acute Care
DX: K52.9 Noninfective gastroenteritis and colitis, unspecified (principal); E87.6 Hypokalemia; F17.210 Nicotine dependence, cigarettes, uncomplicated; J44.9 Chronic obstructive pulmonary disease, unspecified; Z79.52 Long term (current) use of systemic steroids; Z79.899 Other long term (current) drug therapy; Z88.5 Allergy status to narcotic agent; Z88.6 Allergy status to analgesic agent
CPT/HCPCS: 96365; 96366 ×2; 96367; 96375 ×2; 96376 ×3; J2060 ×2; J3490 ×3; J2270; J2405 ×4; J0780 ×2; J2550 ×4; J7030; J7050; J7120; J3480; 80048 ×2; 80053; 36415 ×3; 85025 ×2; 87045; 87046; 84703; 83690; 83735; 70450; 74177; 94760 ×4; 99406; 99285; G0378